=== PATIENT | male | born 1970 | race American Indian/Alaskan Native ===

== ENCOUNTER 2017-04-22 14:31 | Outpatient (CLI) | payer OTHER ==
--- NOTE | 2017-04-22 15:38 | Magnetic Resonance Report ---
MRI scan of brain: History: Vertigo paraplegia. Technique: Multiplanar multisequence images were obtained without contrast injection. Findings: No evidence of restricted diffusion. Ventricles are normal in size and midline in location. No evidence of acute ischemia, hemorrhage or mass. No extra-axial fluid collection. Normal brainstem and cerebellum. Normal sinuses and mastoid air cells. Impression: No acute intracranial abnormality.
== END 2017-04-22 14:32 | disposition home or self-care (01) ==
LOC: MRI 14:31
PROVIDERS: ATTEND Psychiatry & Neurology Neurology
DX: G82.20 Paraplegia, unspecified (principal); R42 Dizziness and giddiness
CPT/HCPCS: 70551